=== PATIENT | female | born 1980 | race American Indian/Alaskan Native ===

== ENCOUNTER 2017-06-30 19:22 | Emergency (ER) | payer OTHER ==
[2017-06-30 19:46] VITALS: RESP 20
[2017-06-30] MEDS ORDERED: Dexamethasone 4 mg/1 ml IM STA (20:14)
[2017-06-30] MEDS ORDERED: Dexamethasone 4 mg/1 ml ONE (20:25)
--- NOTE | 2017-06-30 20:29 | C.PDOC ---
History Of Present Illness 36 yr old female presents to the ER with 3 day history of left shoulder/left upper back pain radiating down the left arm, gradually worsening since yesterday. Patient states the pain is worsened with movement of the arm. Denies recent trauma, heavy lifting, fever, chest pain, SOB, neck pain, weakness or numbness. Time Seen by Provider: 06/30/17 19:28 Chief Complaint (Nursing): Upper Extremity Problem/Injury History Per: Patient History/Exam Limitations: no limitations Onset/Duration Of Symptoms: Days (3) Past Medical History Reviewed: Historical Data, Nursing Documentation, Vital Signs Vital Signs: Last Vital Signs Temp 98.3 F 06/30/17 21:53 Pulse 86 06/30/17 21:53 Resp 20 06/30/17 21:53 BP 132/86 06/30/17 21:53 Pulse Ox 98 06/30/17 21:53 - Medical History PMH: Anxiety (as per patient), Asthma (not intubated, not hospitalized), Depression, Migraine, TIA (2 years ago) Family History: States: No Known Family Hx - Social History Hx Tobacco Use: No Hx Alcohol Use: Yes (OXCASIONAL) Hx Substance Use: No - Immunization History Hx Tetanus Toxoid Vaccination: No Hx Influenza Vaccination: No Hx Pneumococcal Vaccination: No Review Of Systems Except As Marked, All Systems Reviewed And Found Negative. Constitutional: Negative for: Fever Cardiovascular: Negative for: Chest Pain Respiratory: Negative for: Shortness of Breath Musculoskeletal: Positive for: Shoulder Pain (Left shoulder), Back Pain (Left upper back). Negative for: Neck Pain Neurological: Negative for: Weakness, Numbness Physical Exam - Physical Exam Appears: Non-toxic, No Acute Distress Skin: Warm, Dry, No Rash Head: Atraumatic, Normacephalic Eye(s): bilateral: Normal Inspection, PERRL, EOMI Oral Mucosa: Moist Neck: Normal, Normal ROM, No Midline Cervical Tenderness, No Paracervical Tenderness, No Step Off Deformity, Supple Chest: Symmetrical, No Tenderness, No Ecchymosis, No Subcutaneous Emphysema Cardiovascular: Rhythm Regular, No Friction Rub, No Murmur Respiratory: Normal Breath Sounds, No Rales, No Rhonchi, No Stridor, No Wheezing Gastrointestinal/Abdominal: Bowel Sounds (active), Soft, No Tenderness Back: No CVA Tenderness, No Vertebral Tenderness, No Paraspinal Tenderness Extremity: Normal ROM (Normal ROM of left hand.), Capillary Refill (<2 secs), Other ((+) Moderate muscle spasm to the left trapezius and left deltoid muscle with tenderness. Normal left elbow. Normal left hand. ) Pulses: Left Radial: Normal, Right Radial: Normal Neurological/Psych: Oriented x3, Normal Speech, Normal Motor, Normal Sensation Gait: Steady ED Course And Treatment O2 Sat by Pulse Oximetry: 100 (RA) Pulse Ox Interpretation: Normal Medical Decision Making Medical Decision Making: PLAN: * Valium PO * Decadron IM * Toradol IM On re-exam, the patient reports improvement of symptoms. Lungs are CTA, heart is RRR, Ambulatory in ED with steady gait. Abdomen is soft, non-tender and patient is tolerating PO well. Follow up with the medical doctor within 1-2 days. Return if worsened. Disposition - Disposition Referrals: [facility] at [facility] [Outside] Veronica Orourke MD [Staff Provider] - Disposition: HOME/ ROUTINE Disposition Time: 21:44 Condition: GOOD Additional Instructions: Follow up with the medical doctor within 1-2 days. Return if worsened. Prescriptions: Cyclobenzaprine [Cyclobenzaprine HCl] 10 mg PO BID #14 tab Naproxen [Naprosyn] 500 mg PO BID #20 tab Instructions: Muscle Spasm (ED) Forms: [facility] (Norwegian), Work Excuse - Clinical Impression Clinical Impression: Muscle spasm - PA / [employer]NAGER / Resident Statement MD/DO has reviewed & agrees with the documentation as recorded. - Scribe Statement The provider has reviewed the documentation as recorded by the Scribe Shana Figueroa All medical record entries made by the Scribe were at my direction and personally dictated by me. I have reviewed the chart and agree that the record accurately reflects my personal performance of the history, physical exam, medical decision making, and the department course for this patient. I have also personally directed, reviewed, and agree with the discharge instructions and disposition.
[2017-06-30 21:54] VITALS: BP 132/86; PULSE 86; TEMP 98.3
[2017-07-01 05:14] VITALS: O2SAT 100
== END 2017-06-30 21:53 | disposition home or self-care (01) ==
LOC: C.ER 19:22
DX: M62.838 Other muscle spasm (principal)
CPT/HCPCS: 96372; 99284; J1100; J1885